=== PATIENT | female | born 1985 | race African-American/Black ===

== ENCOUNTER 2017-05-23 00:33 | Emergency (ER) | payer OTHER ==
[~2017-05-23] VITALS: Ht 162.6 cm; Wt 62.0 kg
[~2017-05-23 00:33] MED LIST: CLON2TAB4; SERT25TA74
[2017-05-23 02:29] LABS: CHLORIDE 100 mEq/L (98-107)
[2017-05-23 02:34] LABS: BASOPHILS % 0.9 % (0.0-2.0); EOSINOPHILS % 0.1 % (0.0-5.0); HEMATOCRIT. 35.5 % (36.0-48.0); HEMOGLOBIN. 11.5 g/dL (12.0-16.0); LYMPHOCYTES % 29.2 % (20.0-50.0); MEAN CORPUSCULAR HEMOGLOBIN 24.6 pg (28.0-32.0); MONOCYTES % 7.3 % (2.0-8.0); NEUTROPHILS % 62.5 % (40.0-76.0); PLATELET 200 x1000/uL (130-400); RED BLOOD CELL COUNT 4.68 mill/uL (4.2-5.4); RED CELL DISTRIBUTION WIDTH 14.5 % (11.6-14.6)
[2017-05-23 02:45] LABS: CARBON DIOXIDE 30 mEq/L (21-32); ETHANOL BLOOD < 10 mg/dL
[2017-05-23 02:53] LABS: HCG SCREEN NEGATIVE
[2017-05-23] MEDS ORDERED: SODIUM CHLORIDE 0.9% 1,000 ML IV ONE (03:18)
[2017-05-23 04:40] LABS: CLARITY URINE CLEAR (CLEAR); COLOR URINE YELLOW (YELLOW); GLUCOSE URINE NEGATIVE (NEGATIVE); KETONES URINE NEGATIVE (NEGATIVE); LEUKOCYTE ESTERASE URINE TRACE (NEGATIVE); NITRITE URINE NEGATIVE (NEGATIVE); OCCULT BLOOD URINE 2+ (NEGATIVE); PROTEIN URINE NEGATIVE (NEGATIVE); UROBILINOGEN URINE 0.2 E.U./dL (0.2-1.0)
[2017-05-23] MEDS ORDERED: LORAZEPAM 1MG TABLET PO ONE (04:45)
[2017-05-23 05:05] LABS: *BARBITURATES SCREEN URINE NEGATIVE (NEGATIVE); *COCAINE SCREEN URINE NEGATIVE (NEGATIVE); METHADONE URINE SCREEN NEGATIVE (NEGATIVE); OPIATES URINE SCREEN NEGATIVE (NEGATIVE)
[2017-05-23 05:10] LABS: *BENZODIAZEPINES SCREEN URINE NEGATIVE (NEGATIVE)
[2017-05-23 05:11] LABS: *AMPHETAMINES SCREEN URINE PRESUMTIVE POSITIVE (NEGATIVE); CANNABINOID URINE SCREEN PRESUMTIVE POSITIVE (NEGATIVE); PHENCYCLIDINE URINE SCREEN PRESUMTIVE POSITIVE (NEGATIVE)
[2017-05-23 14:55] VITALS: BP 112/76
== END 2017-05-23 15:18 | disposition home or self-care (01) ==
LOC: ER 00:33
DX: T42.6X5A Adverse effect of other antiepileptic and sedative-hypnotic drugs, initial encounter (principal); F15.10 Other stimulant abuse, uncomplicated; R45.851 Suicidal ideations; F31.9 Bipolar disorder, unspecified; F16.10 Hallucinogen abuse, uncomplicated; F12.10 Cannabis abuse, uncomplicated; F17.200 Nicotine dependence, unspecified, uncomplicated
CPT/HCPCS: 36415; 80053; 80165; 80305; 80307; 80329; 81001; 84703; 85025; 96360; 96361; 99285; G0482; J7030; Z7610

== ENCOUNTER 2019-11-25 05:51 | Emergency (ER) | payer MEDICAID, OTHER ==
[~2019-11-25] VITALS: Ht 167.6 cm; Wt 73.0 kg
[~2019-11-25 05:51] MED LIST changes: +CLON2TAB11; -CLON2TAB4
[2019-11-25 06:13] VITALS: BP 134/98
[2019-11-25] MEDS ORDERED: LORAZEPAM 1MG TABLET PO ONE (06:45)
[2019-11-25] MEDS ORDERED: OLANZAPINE 10 MG/VIAL IM ONE (07:15)
[2019-11-25 08:23] LABS: BASOPHILS % 0.6 % (0.0-2.0); EOSINOPHILS % 0.1 % (0.0-5.0); HEMATOCRIT. 35.6 % (36.0-48.0); HEMOGLOBIN. 11.6 g/dL (12.0-16.0); LYMPHOCYTES % 22.5 % (20.0-50.0); MEAN CORPUSCULAR HEMOGLOBIN 25.3 pg (28.0-32.0); MEAN PLATELET VOLUME 8.5 fl (7.4-10.4); MONOCYTES % 8.4 % (2.0-8.0); NEUTROPHILS % 68.4 % (40.0-76.0); PLATELET 239 x1000/uL (130-400); RED BLOOD CELL COUNT 4.56 mill/uL (4.2-5.4); RED CELL DISTRIBUTION WIDTH 15.3 % (11.6-14.6)
[2019-11-25 08:31] LABS: CHLORIDE 109 mEq/L (98-107)
[2019-11-25 08:35] LABS: ETHANOL BLOOD < 10 mg/dL
[2019-11-25 08:42] LABS: CLARITY URINE CLOUDY (CLEAR); COLOR URINE YELLOW (YELLOW); KETONES URINE NEGATIVE (NEGATIVE); LEUKOCYTE ESTERASE URINE TRACE (NEGATIVE); NITRITE URINE NEGATIVE (NEGATIVE); OCCULT BLOOD URINE 3+ (NEGATIVE); PROTEIN URINE NEGATIVE (NEGATIVE); SPECIFIC GRAVITY URINE 1.014 (1.005-1.030)
[2019-11-25 09:03] LABS: *COCAINE SCREEN URINE NEGATIVE (NEGATIVE); METHADONE URINE SCREEN NEGATIVE (NEGATIVE); OPIATES URINE SCREEN NEGATIVE (NEGATIVE)
[2019-11-25 09:04] LABS: *AMPHETAMINES SCREEN URINE NEGATIVE (NEGATIVE); *BARBITURATES SCREEN URINE NEGATIVE (NEGATIVE); *BENZODIAZEPINES SCREEN URINE NEGATIVE (NEGATIVE); PHENCYCLIDINE URINE SCREEN NEGATIVE (NEGATIVE)
[2019-11-25 09:20] LABS: CANNABINOID URINE SCREEN PRESUMTIVE POSITIVE (NEGATIVE)
== END 2019-11-25 12:10 | disposition home or self-care (01) ==
LOC: ER 06:41
DX: F22 Delusional disorders (principal); F17.290 Nicotine dependence, other tobacco product, uncomplicated; F12.10 Cannabis abuse, uncomplicated; Z79.899 Other long term (current) drug therapy
CPT/HCPCS: 36415; 80053; 80305; 80307; 80320; 80329; 81003; 81025; 85025; 99283; G0480

== ENCOUNTER 2022-06-20 11:48 | Emergency (ER) | payer MEDICAID ==
[~2022-06-20] VITALS: Ht 162.6 cm; Wt 64.0 kg
[2022-06-20] MEDS ORDERED: OXYCODONE HCL/ACETAMINOPHEN 5/325MG TABLET PO ONE (13:00)
[2022-06-20] MEDS ORDERED: OXYC-100 MT (13:05)
[2022-06-20 13:22] VITALS: BP 119/83
== END 2022-06-20 13:23 | disposition home or self-care (01) ==
LOC: ER 11:48
DX: Z76.0 Encounter for issue of repeat prescription (principal); F12.10 Cannabis abuse, uncomplicated; Z98.890 Other specified postprocedural states
CPT/HCPCS: 99283

== ENCOUNTER 2022-06-24 11:02 | Emergency (ER) | payer MEDICAID ==
[~2022-06-24] VITALS: Ht 162.6 cm; Wt 64.0 kg
[~2022-06-24 11:02] MED LIST changes: +OXYC-100 MT
[2022-06-24 11:08] VITALS: BP 152/86
[2022-06-24] MEDS ORDERED: IBUP-2029 MT (11:38)
== END 2022-06-24 12:15 | disposition home or self-care (01) ==
LOC: ER 11:09
DX: Z76.0 Encounter for issue of repeat prescription (principal); F41.9 Anxiety disorder, unspecified; Z98.890 Other specified postprocedural states
CPT/HCPCS: 99281

== ENCOUNTER 2022-07-11 12:08 | Emergency (ER) | payer MEDICAID ==
[~2022-07-11] VITALS: Ht 162.6 cm; Wt 75.0 kg
[~2022-07-11 12:08] MED LIST changes: +IBUP-2029 MT
[2022-07-11] MEDS ORDERED: ACETAMINOPHEN WITH CODEINE 300/30MG TABLET PO ONE (15:15)
[2022-07-11 15:17] VITALS: BP 138/81
== END 2022-07-11 15:27 | disposition home or self-care (01) ==
LOC: ER 12:08
DX: Z76.0 Encounter for issue of repeat prescription (principal); F12.10 Cannabis abuse, uncomplicated; M79.605 Pain in left leg
CPT/HCPCS: 99282

== ENCOUNTER 2023-03-21 16:18 | Emergency (ER) | payer MEDICAID ==
[~2023-03-21] VITALS: Ht 162.6 cm; Wt 66.0 kg
[2023-03-21 17:21] VITALS: BP 119/71; RESP 18; TEMP 98.3; O2SAT 100
[2023-03-21 17:26] VITALS: PULSE 88
[2023-03-21] MEDS ORDERED: KETOROLAC 30MG/ML VIAL IM ONE (18:45)
== END 2023-03-21 19:09 | disposition left against medical advice (07) ==
LOC: ER 16:18
DX: Z79.891 Long term (current) use of opiate analgesic (principal)
CPT/HCPCS: 81025; 96372; 99283; J1885; Z7610

== ENCOUNTER 2023-04-09 21:32 | Emergency (ER) | payer MEDICAID ==
[~2023-04-09] VITALS: Ht 170.2 cm; Wt 66.0 kg
[2023-04-09 21:35] VITALS: BP 123/82; PULSE 100; RESP 16; TEMP 98.4; O2SAT 100
== END 2023-04-10 01:00 | disposition home or self-care (01) ==
LOC: ER 21:32
DX: F12.129 Cannabis abuse with intoxication, unspecified (principal); X58.XXXA Exposure to other specified factors, initial encounter
CPT/HCPCS: 81025; 99283

== ENCOUNTER 2023-05-07 05:22 | Emergency (ER) | payer MEDICAID ==
[~2023-05-07] VITALS: Ht 160 cm; Wt 62.9 kg
[2023-05-07 05:33] VITALS: BP 122/72; PULSE 97; RESP 18; TEMP 98.2; O2SAT 100
[2023-05-07] MEDS ORDERED: CARI250T PO (06:09)
== END 2023-05-07 06:27 | disposition home or self-care (01) ==
LOC: ER 05:22
DX: M79.10 Myalgia, unspecified site (principal); M79.605 Pain in left leg; F12.10 Cannabis abuse, uncomplicated; Z79.899 Other long term (current) drug therapy
CPT/HCPCS: 99281; 99283

== ENCOUNTER 2023-12-29 07:19 | Emergency (ER) | payer MEDICAID ==
[~2023-12-29] VITALS: Ht 167.6 cm; Wt 80.0 kg
[~2023-12-29 07:19] MED LIST changes: +CARI250T PO
[2023-12-29 07:26] VITALS: O2SAT 97
[2023-12-29] MEDS: HYDROCODONE/ACETAMINOPHEN 10/325MG TABLET PO ONE (08:00)
[2023-12-29] MEDS: TETANUS, DIPHTHERIA, PERTUSSIS VAC/PF 0.5ML (>10YR OLD) IM ONE (08:00)
[2023-12-29] MEDS: CEFAZOLIN 1000MG PREMIX 50 ML IV ONE (10:00)
[2023-12-29] MEDS: LIDOCAINE HCL 1% 20ML VIAL (Pyxis) INJ INFIL ONE (10:00)
[2023-12-29] MEDS ORDERED: CEPH500C2 MT (11:05)
[2023-12-29] MEDS ORDERED: IBUP-2029 MT (11:05)
[2023-12-29] MEDS: BUPROPION HCL 75MG TABLET PO ONE (11:49)
[2023-12-29 11:51] VITALS: BP 121/65; PULSE 80; RESP 18; TEMP 98.3
== END 2023-12-29 11:51 | disposition short-term general hospital (02) ==
LOC: ER 07:19
DX: S02.85XA Fracture of orbit, unspecified, initial encounter for closed fracture (principal); S02.40DA Maxillary fracture, left side, initial encounter for closed fracture; S22.32XA Fracture of one rib, left side, initial encounter for closed fracture; S01.511A Laceration without foreign body of lip, initial encounter; Y04.0XXA Assault by unarmed brawl or fight, initial encounter; Y93.89 Activity, other specified; Y92.89 Other specified places as the place of occurrence of the external cause; Y99.8 Other external cause status
CPT/HCPCS: 81025; 71045; 70450; 70486; 72125; 90715; 12013; 90471; 99291; J0690; Z7610 ×3